=== PATIENT | female | born 1980 | race Caucasian/White ===

== ENCOUNTER → 2019-10-10 | Outpatient (CLI) | payer OTHER ==
[2019-10-10 13:36] LABS: ABSOLUTE MONOCYTES (AUTO) 0.2 10^3/uL (0.1-1.4); ABSOLUTE NEUT (AUTO) 2.6 10^3/uL (1.7-8.2); BASOPHILS % (AUTO) 0.4 % (0-2); EOSINOPHILS % (AUTO) 1.2 % (0-6); HEMOGLOBIN 11.7 g/dL (12.0-15.5); MEAN CORPUSCULAR HEMOGLOBIN 31.5 pg (27.0-33.4); MEAN CORPUSCULAR HGB CONC 35.5 g/dL (32.0-36.0); MEAN CORPUSCULAR VOLUME 89 fl (80-97); PLATELET COUNT 271 10^3/uL (150-450); RED BLOOD COUNT 3.72 10^6/uL (3.72-5.28); RED CELL DISTRIBUTION WIDTH 12.9 % (11.5-14.0); SEGMENTED NEUTROPHILS % (AUTO) 66.4 % (42-78); TOTAL CELLS COUNTED % (AUTO) 100 %; WHITE BLOOD COUNT 3.9 10^3/uL (4.0-10.5)
[2019-10-10 13:36] LABS: APPEARANCE,URINE CLEAR; BILIRUBIN,URINE NEGATIVE (NEGATIVE); COLOR,URINE STRAW; GLUCOSE, URINE NEGATIVE (NEGATIVE); KETONES,URINE NEGATIVE (NEGATIVE); LEUKOCYTE ESTERASE,URINE NEGATIVE (NEGATIVE); NITRITE,URINE NEGATIVE (NEGATIVE); PROTEIN,URINE NEGATIVE (NEGATIVE); URINE SPECIFIC GRAVITY 1.003; UROBILINOGEN,URINE NEGATIVE mg/dL (<2.0)
== END ==
LOC: OD 12:48
PROVIDERS: ATTEND Pain Medicine Interventional Pain Medicine
DX: D72.819 Decreased white blood cell count, unspecified (principal)
CPT/HCPCS: 36415; 81001; 85025

== ENCOUNTER 2019-10-12 05:26 | Day surgery (SDC) | payer OTHER ==
[2019-10-09 11:19] LABS: HEMATOCRIT 33.1 % (36.0-47.0); HEMOGLOBIN 11.6 g/dL (12.0-15.5); MEAN CORPUSCULAR HGB CONC 35.1 g/dL (32.0-36.0); MEAN CORPUSCULAR VOLUME 88 fl (80-97); PLATELET COUNT 246 10^3/uL (150-450); RED BLOOD COUNT 3.75 10^6/uL (3.72-5.28); RED CELL DISTRIBUTION WIDTH 12.9 % (11.5-14.0); WHITE BLOOD COUNT 2.9 10^3/uL (4.0-10.5)
[2019-10-09 11:22] LABS: APPEARANCE,URINE SLIGHTLY-CLOUDY; BILIRUBIN,URINE NEGATIVE (NEGATIVE); COLOR,URINE YELLOW; GLUCOSE, URINE NEGATIVE (NEGATIVE); KETONES,URINE NEGATIVE (NEGATIVE); LEUKOCYTE ESTERASE,URINE MODERATE (NEGATIVE); NITRITE,URINE NEGATIVE (NEGATIVE); PROTEIN,URINE NEGATIVE (NEGATIVE); URINE SPECIFIC GRAVITY 1.004; UROBILINOGEN,URINE NEGATIVE mg/dL (<2.0)
[2019-10-09 11:36] LABS: INTERNATIONAL RATION (INR) 1.06; PARTIAL THROMBOPLASTIN TIME 30.1 SEC (23.5-35.8); PROTHROMBIN TIME 13.8 SEC (11.4-15.4)
[~2019-10-12 05:26] MED LIST: CEFAZOLIN 1 GM/D5W RTU 1 GM/50 ML RTUPB IV ONE; CEFAZOLIN 1 GM/D5W RTU 1 GM/50 ML RTUPB IV PRN; LACTATED RINGERS 1000 ML IV PRN; LIDOCAINE 0.5% INJ-PF (5 MG/ML) 50 ML SDV SUBCUT PRN
[2019-10-12] MEDS ORDERED: SODIUM BICARBONATE 4.2% INJ (2.5 MEQ/5 ML) VIAL ONE (06:52)
[2019-10-12] MEDS ORDERED: BUPIVACAINE HCL 0.25% /EPINEPHRINE INJ/PF 30 ML SDV ONE (06:52)
[2019-10-12] MEDS ORDERED: LIDOCAINE 1% INJ-PF (10 MG/ML) 30 ML SDV ONE (06:52)
[2019-10-12] MEDS ORDERED: ONDANSETRON HCL INJ/PF 4 MG/2 ML SDV ONE (06:58)
[2019-10-12] MEDS ORDERED: PROPOFOL INJ 200 MG/20 ML VIAL IV ONE (06:58)
[2019-10-12] MEDS ORDERED: FENTANYL CITRATE INJ/PF 100 MCG/2 ML AMPUL ONE (06:58)
[2019-10-12] MEDS ORDERED: MIDAZOLAM 2 MG/2 ML INJ ONE (06:58)
[2019-10-12] MEDS ORDERED: LIDOCAINE 2% INJ-PF (20 MG/ML) 10 ML AMPUL ONE (06:58)
[2019-10-12] MEDS ORDERED: MEPERIDINE HCL/PF INJ 25 MG/1 ML DISP.SYRIN IV PRN (07:54)
[2019-10-12] MEDS ORDERED: FENTANYL CITRATE INJ/PF 100 MCG/2 ML AMPUL IV PRN ×3 (07:54)
[2019-10-12] MEDS ORDERED: PROMETHAZINE HCL INJ 25 MG/1 ML VIAL IV PRN (07:54)
[2019-10-12] MEDS ORDERED: ONDANSETRON HCL INJ/PF 4 MG/2 ML SDV IV PRN (07:54)
[2019-10-12] MEDS ORDERED: OXYCODONE-ACETAMINOPHEN 5-325 MG TABLET PO PRN ×2 (07:54)
[2019-10-12] MEDS ORDERED: DIPHENHYDRAMINE HCL 50 MG/ML VIAL IV PRN (07:54)
--- NOTE | 2019-10-12 08:45 | Operative Report ---
Operative Report DATE OF SURGERY: 10/12/19 PREOPERATIVE DIAGNOSIS: Nonfunctioning spinal cord stimulating system POSTOPERATIVE DIAGNOSIS: Same OPERATION: Removal of right and left spinal cord stimulator electrodes under fluoroscopic guidance next number removal of pulse generator SURGEON: PATIENCE CARVAJAL ANESTHESIA: LMAC TISSUE REMOVED OR ALTERED: Spinal cord stimulating system COMPLICATIONS: None ESTIMATED BLOOD LOSS: Minimal PROCEDURE: After obtaining informed advising patient the risk and benefits including ser ious neurological injury bleeding infection aggravation of pain allergic reaction to medication she was taken to the operating room. She was placed comfortably in the prone position. Comfort was assessed visually and verbally. Monitors were applied MAC anesthesia was administered. She was then prepped with chlorhexidine twice and allowed appropriate drying time prior to draping. The surgical sites had been predetermined and evaluated and further more evaluated with x-ray to identify the lead insertion points and easiest access point. Both sites over the pulse generator midline lumbar incision were anesthetized with 1% lidocaine with bicarb followed by quarter percent bupivacaine with epinephrine beginning in the midline sharp blunt dissection was performed down to the lead anchors these were easily removed as well as all stitch material. The leads were withdrawn from the epidural space without difficulty. Attention was directed towards the pulse generator pocket. Sharp blunt dissection performed down as well electrocautery was utilized as necessary for hemostasis. The generator was removed without difficulty in its entirety. All lead material was then removed as well both wounds were copiously irrigated with Betadine containing irrigation solution wounds were then closed sequentially with inverted vertical mattress sutures using 3-0 Polysorb lumbar incision was closed with a second layer of 4-0 Vicryl both incisions were then taped with Dermabond tape and Dermabond cement. This was dry Telfa and occlusive dressing Tegaderms were placed over this. And taken to PACU for further postoperative care and monitoring. In the vacation
--- NOTE | 2019-10-12 09:31 | RADIOLOGY REPORT (SQ) ---
EXAM DESCRIPTION: SPINE SINGLE VIEW; NO CHG FLUORO IMAGES COMPLETED DATE/TIME: 10/12/2019 8:52 am REASON FOR STUDY: SPINAL STIMULATOR REMOVAL ASSISTED WITH FLUORO IN OR G89.4 CHRONIC PAIN SYNDROME COMPARISON: None. FLUOROSCOPY TIME: 0.5 minutes. 6 images submitted to PACS. TECHNIQUE: Fluoroscopic images of the thoracic and lumbar spine were obtained intraoperatively durin g placement of a thoracic spinal stimulator. LIMITATIONS: None. IMPRESSION: IMAGE(S) OBTAINED DURING PROCEDURE. COMMENT: Quality ID [id number]: Final reports for procedures using fluoroscopy that document radiation exp osure indices, or exposure time and number of fluorographic images (if radiation exposure indices are not available) Please consult full operative report of the attending physician for description of the procedure. TECHNICAL DOCUMENTATION: JOB ID: [id number] 2010 [employer]- All Rights Reserved Reading location - IP/workstation name: [email or web address]
--- NOTE | 2019-10-12 09:31 | RADIOLOGY REPORT (SQ) ---
EXAM DESCRIPTION: SPINE SINGLE VIEW; NO CHG FLUORO IMAGES COMPLETED DATE/TIME: 10/12/2019 8:52 am REASON FOR STUDY: SPINAL STIMULATOR REMOVAL ASSISTED WITH FLUORO IN OR G89.4 CHRONIC PAIN SYNDROME COMPARISON: None. FLUOROSCOPY TIME: 0.5 minutes. 6 images submitted to PACS. TECHNIQUE: Fluoroscopic images of the thoracic and lumbar spine were obtained intraoperatively durin g placement of a thoracic spinal stimulator. LIMITATIONS: None. IMPRESSION: IMAGE(S) OBTAINED DURING PROCEDURE. COMMENT: Quality ID [id number]: Final reports for procedures using fluoroscopy that document radiation exp osure indices, or exposure time and number of fluorographic images (if radiation exposure indices are not available) Please consult full operative report of the attending physician for description of the procedure. TECHNICAL DOCUMENTATION: JOB ID: [id number] 2010 [employer]- All Rights Reserved Reading location - IP/workstation name: [email or web address]
[2019-10-12 10:26] VITALS: BP 109/63
== END 2019-10-12 10:20 | disposition home or self-care (01) ==
LOC: OROUT 05:26 → EDBD 12:00
PROVIDERS: ATTEND Student in an Organized Health Care Education/Training Program
DX: T85.890A Other specified complication of nervous system prosthetic devices, implants and grafts, initial encounter (principal); Y83.8 Other surgical procedures as the cause of abnormal reaction of the patient, or of later complication, without mention of misadventure at the time of the procedure; G89.4 Chronic pain syndrome; M54.5 Low back pain; M51.17 Intervertebral disc disorders with radiculopathy, lumbosacral region; Z87.891 Personal history of nicotine dependence; Z03.818 Encounter for observation for suspected exposure to other biological agents ruled out; Z79.899 Other long term (current) drug therapy
CPT/HCPCS: 36415; 85027; 85610; 85730; 87635; 81025; 81001; 72020; 63661; 63688; J2250; J3490 ×4; J0690; J3010; J2405; J2704; C9803